=== PATIENT | male | born 1965 | race Caucasian/White ===

== ENCOUNTER 2017-12-28 16:10 | Emergency (ER) | payer SELFPAY ==
--- NOTE | 2017-12-28 16:16 | ED Physician Documentation ---
Sore Throat/Dental Pain - HISTORIAN Historian: patient - HPI Stated Complaint: dental pain Chief Complaint: Dental Pain Onset: other ("a while" ) Context: Dental Caries Associated Symptoms: moderate. denies: fever, sore throat Worsened By: heat, cold Further Comments: yes (He states he knows he has a fractured tooth and some decay. he has an appt with dentist in am . However the pain continues to increase states he has not slept in two nights. He has tried OTC meds with no relief. He is tearful and frustrated per his report . No fever. Denies any drainge) - ROS CONST: no problems CVS/RESP: denies: chest pain, shortness of breath GI/: denies: nausea, vomiting MS/SKIN/LYMPH: denies: rash NEURO/PSYCH: denies: headache - PAST HX Past History: none Other History: none Immunizations: UTD Allergies/Adverse Reactions: Allergies Allergy/AdvReac Type Severity Reaction Status Date / Time glipizide Allergy Severe Hives Verified 09/11/15 07:22 Penicillins Allergy Verified 09/11/15 07:22 sitagliptin phosphate Allergy Hives Verified 09/11/15 07:22 [From [facility]] Home Medications: Ambulatory Orders Medication Instructions Recorded Aspirin 81 mg PO DAILY 02/14/13 Lisinopril [Prinivil] 5 mg PO QD 02/14/13 Metformin HCl [GLUCOPHAGE] 2,000 mg PO DAILY 02/14/13 - SOCIAL HX Smoking History: cigarettes Alcohol Use: none Drug Use: none - FAMILY HX Family History: No - VITAL SIGNS Vital Signs: Vital Signs Temp Pulse Resp BP Pulse Ox 130/68 09/11/15 08:40 - REVIEWED ASSESSMENTS Nursing Assessment Reviewed: Yes Vitals Reviewed: Yes Dental Pain Physical Exam - EXAM General Appearance: mild distress, other (tear) Head/Neck: head nml inspection Eyes: eyes nml inspection Mouth/Throat: lips nml, no drooling, no air way problems, dental tenderness, gum swelling around teeth (right upper back teeth ) Ear/Nose: nml inspection Respiratory: no resp. distress, breath sounds nml, respiratory distress CVS: reg. rate & rhythm, heart sounds nml Abdomen: soft Extremities: non-tender Skin: warm/dry, normal color Neuro/Psych: No: weakness, numbness, anxiety, depression Discharge Clincal Impression: Pain, dental Referrals: Skip Zarate [Primary Care Provider] - 2 Days Comments: 1. Follow up with dentist in am 2. Hydrocodone take 1 by mouth every 8 hours as needed for pain 3. Keflex 500 mg take 1 by mouth BID x 10 days 4. Warm salt water gargles 5. Return to ER for uncontrolled pain, fever, swelling or concerns Condition: Fair Disposition: 01 HOME, SELF-CARE Decision to Admit: NO Date of Decison to Admit: 12/28/17 Decision Time: 16:39
[2017-12-28 16:33] VITALS: BP 151/83
[2017-12-28] MEDS ORDERED: fentaNYL CITRATE/PF 100 MCG/ 2ML AMP IM ONE (16:33)
== END 2017-12-28 16:40 | disposition home or self-care (01) ==
LOC: ED 16:10
DX: K08.89 Other specified disorders of teeth and supporting structures (principal)
CPT/HCPCS: 96372; 99283; J3010

== ENCOUNTER 2019-03-13 08:05 | Outpatient (CLI) | payer OTHER ==
[2019-03-25 10:39] LABS: TSH 1.19 mIU/l (0.465-4.685)
== END 2019-03-13 08:10 | disposition home or self-care (01) ==
LOC: LAB 08:05
PROVIDERS: ATTEND Internal Medicine Endocrinology, Diabetes & Metabolism
DX: D32.9 Benign neoplasm of meninges, unspecified (principal)
CPT/HCPCS: 36415; 82024; 82533; 83001; 83002; 84146; 84305; 84402; 84403; 84439; 84443

== ENCOUNTER 2019-05-13 08:35 | Outpatient (CLI) | payer OTHER ==
[2019-05-13 10:29] LABS: TSH 1.07 mIU/l (0.465-4.685)
== END 2019-05-13 08:37 ==
LOC: LAB 08:35
PROVIDERS: ATTEND Internal Medicine Endocrinology, Diabetes & Metabolism
DX: D32.9 Benign neoplasm of meninges, unspecified (principal)
CPT/HCPCS: 36415; 82533; 83001; 83002; 84146; 84305; 84402; 84403; 84439; 84443

== ENCOUNTER 2019-06-03 21:13 | Emergency (ER) | payer OTHER ==
[2019-06-03] MEDS ORDERED: IPRATROPIUM/ALBUTEROL SULFATE 3 ML AMPUL.NEB NEB STA (21:23)
--- NOTE | 2019-06-03 21:27 | ED Physician Documentation ---
Upper Respiratory Symptoms - HISTORIAN Historian: patient - HPI Chief Complaint: Cough/ Upper Respiratory Further Comments: yes (54 year old male patient presents with worsening cough and dyspnea. Was seen by endocrinology today - Dr Bonilla; was prescribed zpak for bronchitis; reports his Sat was 87% in the office. Patient is waiting on his CPAP machine. Smokes 2 packs per day; was only able smoke 1 pack today.) - ROS CONST/EYES: denies: weakness, eye redness, eye itching, other CVS/RESP: none LYMPH: denies: leg swelling, rash, swollen glands, ankle swelling, other GI/: none NEURO/PSYCH: denies: fainting, dizziness, confusion, anxiety, depression, other MS/SKIN: denies: joint pain, muscle aches, rash, other - PAST HX Lung Disease: COPD Other History: diabetes Type 2, hypertension Allergies/Adverse Reactions: Allergies Allergy/AdvReac Type Severity Reaction Status Date / Time glipizide Allergy Severe Hives Verified 06/03/19 21:19 fentanyl Allergy Verified 06/03/19 21:31 Penicillins Allergy Verified 06/03/19 21:20 sitagliptin phosphate Allergy Hives Verified 06/03/19 21:20 [From [facility]] Home Medications: Ambulatory Orders Medication Instructions Recorded Aspirin 81 mg PO DAILY 02/14/13 Lisinopril [Prinivil] 5 mg PO QD 02/14/13 Metformin HCl [GLUCOPHAGE] 2,000 mg PO DAILY 02/14/13 Azithromycin [Zithromax] 250 mg PO DAILY 06/03/19 Diclofenac Sodium 25 mg PO DAILY 06/03/19 Empagliflozin [Jardiance] 10 mg PO DAILY 06/03/19 Gabapentin 600 mg PO BID 06/03/19 Lovastatin 40 mg PO HS 06/03/19 Omeprazole 20 mg PO DAILY 06/03/19 Tamsulosin HCl 0.4 mg PO HS 06/03/19 Umeclidinium Brm/Vilanterol Tr 1 each PO PRN 06/03/19 [Anoro Ellipta 62.5-25 Mcg INH] - SOCIAL HX Smoking History: cigarettes (2ppd) - FAMILY HX Family History: other. denies: none - VITAL SIGNS Vital Signs: Vital Signs Temp Pulse Resp BP Pulse Ox 97.2 F L 76 20 130/58 99 06/03/19 22:19 06/03/19 22:19 06/03/19 22:19 06/03/19 22:19 06/03/19 22:19 - REVIEWED ASSESSMENTS Nursing Assessment Reviewed: Yes Vitals Reviewed: Yes Progress - Progress Progress: Patient does not want po steroid due to his diabetes. ED Results Lab/Radiology - Orders Orders: ED Orders Category Date Time Status CHEST 2VIEW [RAD] Stat Exams 06/03/19 21:19 Taken CODEINE PHOSPHATE/guaiFENesin [Robitussin AC] Med 06/03/19 21:24 Discontinued 10 ml PO NOW ONE Ipratropium/Albuterol Sulfate [Duoneb] Med 06/03/19 21:23 Discontinued 3 ml NEB STAT STA methylPREDNISolone SOD SUCC [SOLU-Medrol] Med 06/03/19 21:39 Discontinued 125 mg .ROUTE .STK-MED ONE Upper Respiratory Symptoms - EXAM General Appearance: mild distress EENT: eyes nml inspection, nml ENT inspection, lids & conjunct. nml, PERRL, ear nml, nose nml, pharynx nml, airway nml Respiratory: no resp. distress, no pain on inspiration, speaks full sentences, no pleuritic chest pain, other (frequent cough; crackles right posterior base; course throughout. 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 Call your PCP to discuss your CPAP. Condition: Stable Disposition: 01 HOME, SELF-CARE Decision to Admit: NO Decision Time: 22:10
[2019-06-03] MEDS ORDERED: methylPREDNISolone SOD SUCC 125 MG/2 ML VIAL ONE (21:39)
[2019-06-03 22:23] VITALS: BP 130/58
--- NOTE | 2019-06-06 10:03 | Diagnostic Imaging Report ---
INES PEDROZA (INBOUND SALES REPRESENTATIVE) - ER [facility] [address] [id number] Report Submission Date: Jun 03, 2019 9:38:56 PM CDT Patient Study Name: EMILY OLEARY Date: Jun 03, 2019 9:19:48 PM CDT Modality Type: DX Gender: M Description: CHEST 2VIEW : 67 Institution: [facility] Physician: INES PEDROZA (INBOUND SALES REPRESENTATIVE) - ER Chest two views History: Cough and shortness of breath Findings: The lungs are moderately hyperinflated without confluent infiltrate or pleural effusion. Heart size is normal. Minimal bibasilar reticular opacity may represent bronchitis or edema. Electronically signed on Jun 03, 2019 9:38:56 PM CDT by: Jone MCCOLLUM
== END 2019-06-03 22:20 | disposition home or self-care (01) ==
LOC: ED 21:13
DX: J44.9 Chronic obstructive pulmonary disease, unspecified (principal); F17.210 Nicotine dependence, cigarettes, uncomplicated
CPT/HCPCS: 71046; 94640; 99282; 99283; J2930